=== PATIENT | female | born 1970 | race Caucasian/White ===

== ENCOUNTER 2019-06-30 20:39 | Emergency (ER) | payer BC ==
--- OUTSIDE RECORDS SUMMARY | 2019-06-30 20:46 | XMS REPORT | Continuity of Care Document ---
:1970 External Reference #:[id number] Author Name Michelle Ontiveros MD Address [address] [place] [id number] Care Team Providers Name Role Phone Ida Bang DR - Rheumatology Care Team Information Quiller Runner [phone] Mayra Rios MD - Orthopaedic Care Team Information Quiller Runner Surgery Tio Bucio - Gastroenterology Care Team Information Quiller Runner Problems Active Problems Provider Date Family history of ischemic heart disease Bobbi Celeste MD Onset: 2004 History of malignant neoplasm of cervix Bobbi Celeste MD Onset: 2004 Rheumatoid arthritis Michelle Ontiveros MD Onset: 11/01/2016 Mixed hyperlipidemia Michelle Ontiveros MD Onset: 08/29/2017 Anemia Michelle Ontiveros MD Onset: 02/19/2018 Restless legs Michelle Ontiveros MD Onset: 02/19/2018 Low back pain Michelle Ontiveros MD Onset: 11/19/2018 Spinal stenosis of lumbar region Michelle Ontiveros MD Onset: 11/19/2018 Iron deficiency anemia Michelle Ontiveros MD Onset: 05/27/2019 Social History Type Date Description Comments Sex Unknown ETOH Use Occasionally consumes alcohol Tobacco Use Start: Unknown End: Unknown Patient is a former smoker quit 1993 Smoking Status Reviewed: 11/19/18 Patient is a former smoker quit 1993 Allergies, Adverse Reactions, Alerts Description No Known Drug Allergies Medications Active Medications SIG Qnty Indications Ordering Date Provider Ferrous Sulfate 1 by mouth every otc D50.9 Michelle Ontiveros, 05/27/2019 325(65Fe) day MD mg Tablets Pramipexole 1 by mouth every 90tabs G25.81 Michelle Ontiveros, 11/19/2018 Dihydrochloride at bedtime 1.5mg Tablets Celecoxib 1 by mouth every 30caps M48.061 Michelle Ontiveros, 11/19/2018 200mg Capsules day as needed pain - do not use ibuprofen or aleve with this medication. Nystatin apply to rash 30gm L30.4 Michelle Ontiveros, 04/11/2018 [id number]/GM under breast 2 MD Cream times as needed Multivitamin Gummies 2 by mouth every Unknown Adult day Chewtabs Linzess Take 1 Capsule By Unknown 72mcg Capsules Mouth In The Morning Pantoprazole Sodium Take 1 Tablet By Unknown 40mg Mouth In The Tablets DR Morning Immunizations CPT Code Status Date Vaccine Reaction Lot # [id number] Given 11/08/2012 Tdap (Adacel) Ages 7 And Above Only VIS DATE 57252 Given 01/13/2004 Immunization Td 7 Yrs Or Older U-Flu Refused 05/27/2019 Influenza (Non Billable) Unspecified [id number] Refused 05/27/2019 Shingrix (Shingles) Zoster Vaccine HZV, Recombinant , Subunit, Adj 36059 Refused 05/27/2019 Influenza Virus Vaccine,Quadrivalent,Split,Preserv Free, 0.5mL,Im Q2039 Refused 07/02/2018 Flu Vaccine NOS Q2039 Refused 02/19/2018 Flu Vaccine NOS Vital Signs Date Vital Result Comment 05/27/2019 2:42pm Weight 161.00 lb Heart Rate 79 /min BP Systolic 134 mmHg BP Diastolic 76 mmHg Respiratory Rate 18 /min Height 65.25 inches 5'5.25" O2 % BldC Oximetry 98 % Ra BMI (Body Mass Index) 26.6 kg/m2 11/19/2018 2:42pm Weight 167.00 lb Heart Rate 68 /min BP Systolic 124 mmHg BP Diastolic 72 mmHg Respiratory Rate 16 /min Height 65.25 inches 5'5.25" O2 % BldC Oximetry 98 % Ra BMI (Body Mass Index) 27.6 kg/m2 Results Test Date Facility Test Result H/L Range Note Laboratory test finding 05/22/2019 [facility] 22 mm/hr High 0-20 1 Lipid 05/22/2019 [facility] Cholesterol 207 mg/dL High 50-199 Triglycerides 122 mg/dL 30-200 HDL 47 mg/dL 35-85 2 Chol/ HDL Ratio 4.4 ratio 3.7-5.6 VLDL 24 mg/dL 2-29 LDL (Calc) 136 mg/dL High 20-99 3 CBC with Auto Diff-[facility]cmg 05/22/2019 [facility] WBC 8.0 K/uL 4.1-11.0 RBC 4.11 M/uL 4.00-5.40 Hemoglobin 9.6 gm/dL Low 12.0-16.0 Hematocrit 30.4 % Low 36.0-47.0 MCV 73.9 fL Low 80.0-97.0 MCH 23.3 pg Low 27.0-32.0 MCHC 31.6 g/dL Low 32.0-36.0 RDW 18.3 % High 11.5-14.5 PLT Count 329 K/ul 140-400 MPV 8.6 FL 7.1-10.7 Neutrophil 67.0 % 35.0-75.0 Lymphocyte 25.2 % 16.0-52.0 Monocyte 5.2 % 2.0-10.0 Eosinophil 1.8 % 0.0-5.0 Basophil 0.8 % 0.0-4.0 Abs Neutrophils 5.4 K/uL 2.1-8.0 Abs Lymphocytes 2.0 K/uL 0.8-5.5 Abs Monocytes 0.4 K/uL 0.1-1.0 Abs Eosinophils 0.1 K/uL 0.0-0.5 Abs Basophils 0.1 K/uL 0.0-0.3 Laboratory test finding 05/22/2019 [facility] TSH 1.66 uIU/mL 0.35-4.94 Comprehensive Met Panel[facility] 05/22/2019 [facility] Sodium 140 mmol/L 135- 146 4 Potassium 3.8 mmol/L 3.5-5.2 Chloride# 103 mmol/L 97-110 5 Carbon Dioxide 29 mmol/L 24-34 Calcium 9.0 mg/dL 8.5-10.5 6 Glucose 91 mg/dL 70-105 BUN 8 mg/dL 6-26 Creatinine 0.7 mg/dL 0.5-1.4 Total Protein 6.6 g/dL 6.0-8.0 Albumin 4.1 g/dL 3.6-4.9 Globulin 2.5 g/dL 2.0-3.5 A/G Ratio 1.6 Ratio 1.0-2.2 Total Bilirubin 0.4 mg/dL 0.1-1.3 Alkaline Phosphatase 78 U/L 24-140 Alt 9 U/L 3-42 Ast 11 U/L 8-42 Anion Gap 8 mmol/L 5-15 7 Female Egfr 102 >60 8 Male Egfr 112 >60 9 1 prior to office visit in 6 mos 2 Per NCEP ATP III Guidelines: Results lower than 40 mg/dL are suggestive of increased risk for coronary artery disease. Results > or = to 60 mg/dL are considered a negative risk factor. 3 Per NCEP ATP III Guidelines: Normal Population <130 Patients with medical conditions: CHD/DM Optimal: <100 Borderline high: 130-159 High: 160-189 Very high: >189 4 Updated reference range on new analyzer 5 Updated reference range on new analyzer 6 Updated reference range 12-25-2018 7 Updated Reference Range 8 Concerning GFR Guidelines for Americans: Normal function or mild renal disease, if clinically at risk: >/= 60 mL/min Moderately decreased: 30-59 Severely decreased: 15-29 Renal failure: <15 There is reduced accuracy above 60ml/min/1.73 m squared, but the numeric value may be clinically useful in the near 60 range 9 Concerning GFR Guidelines: Normal function or mild renal disease, if clinically at risk: >/= 60 mL/min Moderately decreased: 30-59 Severely decreased: 15-29 Renal failure: <15 There is reduced accuracy above 60ml/min/1.73 m squared, but the numeric value may be clinically useful in the near 60 range Glomerular Filtration Rate (GFR) is estimated based on the CKD-EPI equation, which assumes a steady state for creatinine as recommended by the National Kidney Disease Education Program in conjunction with the National Institutes of Health and the National Kidney Foundation. Clinical conditions in which it may be necessary to measure GFR by using clearance methods include extremes of age and body size, severe malnutrition or obesity, diseases of skeletal muscle, paraplegia or quadriplegia, vegetarian diet, rapidly changing kidney function, and calculation of the dose of potentially toxic drugs that are excreted by the kidneys. Procedures Date Code Description Status 05/09/2019 [id number] Colonoscopy Completed 05/06/2019 [id number] Mammogram Completed 05/02/2018 [id number] Mammogram Completed 04/18/2018 [id number] Mammogram Completed 06/07/2015 [id number] Mammogram Completed Medical Devices Description No Information Available Encounters Description No Information Available Assessments Date Code Description Provider 05/27/2019 M06.9 Rheumatoid arthritis, unspecified Michelle Ontiveros MD 05/27/2019 E78.2 Mixed hyperlipidemia Michelle Ontiveros MD 05/27/2019 D64.9 Anemia, unspecified Michelle Ontiveros MD 05/27/2019 G25.81 Restless legs syndrome Michelle Ontiveros MD 05/27/2019 M54.5 Low back pain Michelle Ontiveros MD 05/27/2019 M48.061 Spinal stenosis, lumbar region without Michelle Ontiveros MD neurogenic claudicati 05/27/2019 M26.601 RIGHT temporomandibular joint disorder, Michelle Ontiveros MD unspecified 05/27/2019 M79.672 Pain in LEFT foot Michelle Ontiveros MD 05/27/2019 D50.9 Iron deficiency anemia, unspecified Michelle Ontiveros MD 05/27/2019 Z68.26 Body mass index (BMI) 26.0-26.9, adult Michelle Ontiveros MD 05/22/2019 M06.9 Rheumatoid arthritis, unspecified Michelle Ontiveros MD 05/22/2019 M06.9 Rheumatoid arthritis, unspecified Schedule, Laboratory 05/22/2019 E78.2 Mixed hyperlipidemia Michelle Ontiveros MD 05/22/2019 E78.2 Mixed hyperlipidemia Schedule, Laboratory 05/22/2019 D64.9 Anemia, unspecified Michelle Ontiveros MD 05/22/2019 D64.9 Anemia, unspecified Schedule, Laboratory 05/22/2019 G25.81 Restless legs syndrome Michelle Ontiveros MD 05/22/2019 G25.81 Restless legs syndrome Schedule, Laboratory 05/22/2019 Z01.419 Encounter for gynecological examination Michelle Ontiveros MD (general) (routine) without abnormal findings 05/22/2019 Z01.419 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) (routine) w/o Schedule, Laboratory abn findings 05/22/2019 M06.9 Rheumatoid arthritis, unspecified [facility] 05/22/2019 E78.2 Mixed hyperlipidemia [facility] 05/22/2019 D64.9 Anemia, unspecified [facility] 05/22/2019 G25.81 Restless legs syndrome [facility] 05/22/2019 Z01.419 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 Kay for this. We will check labs.Follow up:After 11/19 no Pap smear - check labs prior.E78.2 Mixed hyperlipidemiaComments:Cholesterol is improved. Diet controlled. She is not taking any medication for this. total cholesterol 207, triglycerides 122, HDL is 47, and LDL 136. Liver enzymes are normal.D64.9 Anemia, unspecifiedNew Labs: Vitamin B12, Scheduled: 11/18/19Comments:She has microcytic anemia. She was recommended to take [id number] ferrous Sulfate 325 mg 1 tablet daily. We will repeat her labs.G25.81 Restless legs syndromeComments:She has no improvement with the use of pramipexole. She developed change in her symptoms where she is now has pain this might be related to spinal stenosis.M54.5 Low back painComments:We will refer to military communications specialist. She will call with the name for referral.Referral:No Doctor IbgncqbyT93.061 Spinal stenosis, lumbar region without neurogenic claudicatiComments:She was given Celecoxib 200 mg 1 tablet every day as needed for pain. We will refer to military communications specialist. She will call with the name for referral.Referral:No Doctor LdpidcekE64.601 RIGHT temporomandibular joint disorder, unspecifiedComments:She was advised to recommended to eat soft diet. Ice or heat on it.M79.672 Pain in LEFT footComments:Suspect foot pain is related to spinal stenosis. refer to spine uwipolxttjH35.9 Iron deficiency anemia, unspecifiedNew Medication:Ferrous Sulfate 325(65 Fe) mg - 1 by mouth every dayNew Labs:CBC with Auto Diff-[facility], Scheduled: 11/18/19Iron Panel, Scheduled: 11/18/19Comments:new problem - start iron rkewmsuonkY81.26 Body mass index (BMI) 26.0-26.9, adultComments:Your ideal BMI is between 18.5 and 25 - you are close to this range. Continue to work on healthy lifestyle with healthy diet and regular exercise. Functional Status Description No Information Available Mental Status Description No Information Available Referrals Refer to Reason for Referral Status Appt Date refer to military communications specialist - she will call with name of Created for referral
--- OUTSIDE RECORDS SUMMARY | 2019-06-30 20:46 | XMS REPORT | Continuity of Care Document ---
:1970 External Reference #:[id number] Author Name Michelle Ontiveros MD Address [address] [place] [id number] Care Team Providers Name Role Phone Ida Bang DR - Rheumatology Care Team Information Substitute Crossing Guard Mayra Rios MD - Orthopaedic Care Team Information Substitute Crossing Guard Surgery Tio Bucio - Gastroenterology Care Team Information Substitute Crossing Guard [phone] Problems Active Problems Provider Date Family history of ischemic heart disease Bobbi Celeste MD Onset: 2004 History of malignant neoplasm of cervix Bobbi Celeste MD Onset: 2004 Rheumatoid arthritis Michelle Ontiveros MD Onset: 11/01/2016 Mixed hyperlipidemia Michelle nOtiveros MD Onset: 08/29/2017 Anemia Michelle Ontiveros MD [...] former smoker quit 1993 Smoking Status Reviewed: 06/19/19 Patient is a former smoker quit 1993 Allergies, Adverse Reactions, Alerts Description No Known Drug Allergies Medications Active Medications SIG Qnty Indications Ordering Date Provider Prednisone 6 pills by mouth 21tabs M06.9 Michelle Ontiveros, 06/19/2019 10mg Tablets x 1 dose today, MD then decrease dose by 1 pill daily until gone. Ferrous Sulfate 1 by mouth every otc D50.9 [place] Michelle, 05/27/2019 325(65Fe) day MD mg Tablets Pramipexole 1 by mouth every 90tabs G25.81 [place] Michelle, 11/19/2018 Dihydrochloride at bedtime MD 1.5mg Tablets Celecoxib 1 by mouth every 30caps M48.061 Michelle Ontiveros, 11/19/2018 200mg Capsules day as needed MD pain - do not use ibuprofen or aleve with this medication. Nystatin apply to rash 30gm L30.4 Michelle Ontiveros, 04/11/2018 888482Ngfb/GM under breast 2 MD Cream times as needed Multivitamin Gummies 2 by mouth every Unknown Adult day Chewtabs Linzess Take 1 Capsule By Unknown 72mcg Capsules Mouth In The Morning Pantoprazole Sodium Take 1 Tablet By Unknown 40mg Mouth In The Tablets DR Morning Immunizations CPT Code Status Date Vaccine Reaction Lot # [id number] Given 11/08/2012 Tdap (Adacel) Ages 7 And Above Only VIS DATE 70503 Given 01/13/2004 Immunization Td 7 Yrs Or Older U-Flu Refused 05/27/2019 Influenza (Non Billable) Unspecified 21355 Refused 05/27/2019 Shingrix (Shingles) Zoster Vaccine HZV, Recombinant , Subunit, Adj 40329 Refused 05/27/2019 Influenza Virus Vaccine,Quadrivalent,Split,Preserv Free, 0.5mL,Im Q2039 Refused 07/02/2018 Flu Vaccine NOS Q2039 Refused 02/19/2018 Flu Vaccine NOS Vital Signs Date Vital Result Comment 06/19/2019 3:24pm Weight 160.00 lb Heart Rate 74 /min BP Systolic 126 mmHg BP Diastolic 78 mmHg Respiratory Rate 18 /min Height 65.25 inches 5'5.25" O2 % BldC Oximetry 99 % Ra BMI (Body Mass Index) 26.4 kg/m2 05/27/2019 2:42pm Weight 161.00 lb Heart Rate 79 /min BP Systolic 134 mmHg BP Diastolic 76 mmHg Respiratory Rate 18 /min Height 65.25 inches 5'5.25" O2 % BldC Oximetry 98 % Ra BMI (Body Mass Index) 26.6 kg/m2 Results Test Date Facility Test Result [...] kidneys. Procedures Date Code Description Status 05/09/2019 [id number] Colonoscopy Completed 05/06/2019 [id number] Mammogram Completed 05/02/2018 [id number] Mammogram Completed 04/18/2018 [id number] Mammogram Completed 06/07/2015 [id number] Mammogram Completed Medical Devices Description No Information Available Encounters Type Date Location Provider Dx Diagnosis Office Visit 05/27/2019 [facility] Michelle Ontiveros MD M06.9 Rheumatoid arthritis, 2:45p unspecified E78.2 Mixed hyperlipidemia D64.9 Anemia, unspecified G25.81 Restless legs syndrome M54.5 Low back pain M48.061 Spinal stenosis, lumbar region without neurogenic aneudy M26.601 RIGHT temporomandibular joint disorder, unspecified M79.672 Pain in LEFT foot D50.9 Iron deficiency anemia, unspecified Z68.26 Body mass index (BMI) 26.0-26.9, adult Assessments Date Code Description Provider 06/19/2019 M79.641 Pain in RIGHT hand Michelle Ontiveros MD 06/19/2019 M06.9 Rheumatoid arthritis, unspecified Michelle Ontiveros MD 06/19/2019 Z68.26 Body mass index (BMI) 26.0-26.9, adult Michelle Ontiveros MD 05/27/2019 M06.9 Rheumatoid arthritis, unspecified Michelle Ontiveros [...] without abnormal findings 05/22/2019 Z01.419 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) (routine) w/o Schedule, Laboratory abn findings 05/22/2019 M06.9 Rheumatoid arthritis, unspecified [facility] 05/22/2019 E78.2 Mixed hyperlipidemia [facility] 05/22/2019 D64.9 Anemia, unspecified [facility] 05/22/2019 G25.81 Restless legs syndrome [facility] 05/22/2019 Z01.419 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) (routine) w/o [facility] abn findings Plan of Treatment Future Appointment(s):11/18/2019 7:40 am - Schedule, Laboratory at [facility]2019 4:15 pm - Michelle Ontiveros MD at [facility]06/19/2019 - Michelle Ontiveros, MDM79.641 Pain in RIGHT handNew Labs:CBC with Auto Diff-[facility], Ordered: 06/19/19[facility], Ordered: 06/19/19CRP (C-Reactive), Ordered: 06/19/19Comprehensive Met Panel[facility] , Ordered: 06/19/19Comments:We will order blood work today. suspect flare of rheumatoid arthritis but will check bloodwork to evaluate for infection vs inflammation - will treat with prednisone taper if the white blood count is not significantly elevated.Follow up:Labs today here or at [facility] Please call Dr. Kay and see if she can be soon, suspect rheumatoid arthritis flare.M06.9 Rheumatoid arthritis, unspecifiedNew Medication:Prednisone 10 mg - 6 pills by mouth x 1 dose today, then decrease dose by 1 pill daily until gone.Comments:We will prescribe the patient on prednisone taper. She will wait for our call before starting this medication.Z68.26 Body mass index (BMI) 26.0-26.9, adultComments:Your ideal bmi is between 18.5 and 25 - you are close to this range. Continue to work on healthy lifestyle with healthy diet and regular exercise. Functional Status Description No Information Available Mental Status Description No Information Available Referrals Refer to Reason for Referral Status Appt Date refer to clinical application specialist - she will call with name of Created for referral
[2019-06-30 21:17] VITALS: BP 117/75
--- NOTE | 2019-06-30 21:32 | UC ---
Eye Complaint HPI - HPI Summary HPI Summary: 49-year-old female presents with 2 day history of progressively worsening eye redness. States today she started noticing some tenderness of the eyelid with palpation without swelling. States she thinks she may have scratched the eye with her makeup brush prior to the onset of symptoms. Denies fever, chills, URI symptoms, visual disturbances, eye pain, eye itchiness, photophobia, or drainage. - History of Current Complaint Chief Complaint: UCEye Stated Complaint: RT EYE COMPLAINT Time Seen by Provider: 06/30/19 21:24 Hx Obtained From: Patient Hx Last Menstrual Period: 06/28/19 Pain Intensity: 6 - Allergies/Home Medications Allergies/Adverse Reactions: Allergies Allergy/AdvReac Type Severity Reaction Status Date / Time No Known Allergies Allergy Verified 06/30/19 21:01 Home Medications: Home Medications Hydroxychloroquine TAB* [Plaquenil TAB*] 200 mg PO DAILY 06/30/19 [History Confirmed 06/30/19] Multivitamin [Multivitamins] 1 cap PO DAILY 06/30/19 [History Confirmed 06/30/19 ] Pantoprazole TAB * [Protonix TAB*] 40 mg PO DAILY 06/30/19 [History Confirmed ] Pramipexole Di-HCl [Pramipexole Dihydrochlori] 1.5 mg PO BEDTIME 06/30/19 [ History Confirmed 06/30/19] celeCOXIB CAP* [CeleBREX CAP*] 200 mg PO DAILY PRN 06/30/19 [History Confirmed 06/30/19] PMH/Surg Hx/FS Hx/Imm Hx - Additional Past Medical History Additional PMH: RA, RLS Previously Healthy: Yes GI/ History: Gastroesophageal Reflux - Surgical History Surgical History: None - Family History Known Family History: Positive: Non-Contributory - Social History Occupation: Employed Full-time Lives: With Family Alcohol Use: Rare Substance Use Type: None Smoking Status (MU): Former Smoker When Did the Patient Quit Smoking/Using Tobacco: 1983 Review of Systems All Other Systems Reviewed And Are Negative: Yes Constitutional: Negative: Fever, Chills Eyes: Positive: Eye Redness. Negative: Blurred Vision, Diplopia, Drainage, Photophobia Respiratory: Positive: Negative Cardiovascular: Positive: Negative Gastrointestinal: Positive: Negative Genitourinary: Positive: Negative Musculoskeletal: Positive: Negative Neurological: Positive: Negative Is Patient Immunocompromised?: No Physical Exam - Summary Physical Exam Summary: GENERAL APPEARANCE: Well developed, well nourished, alert and cooperative, and appears to be in no acute distress. EYES: Left conjunctiva clear. No drainage. Right conjunctival erythema with mild conjunctival edema laterally. No drainage. PERRL, EOM intact. Vision is grossly intact. Tetracaine and fluorosceine were instilled into the right eye and the eye was examined under magnification with a Wood's lamp. No abrasion, FB , penetrating injury, or strain uptake noted. CARDIAC: Normal S1 and S2. No S3, S4 or murmurs. Rhythm is regular. There is no peripheral edema, cyanosis or pallor. Extremities are warm and well perfused. Capillary refill is less than 2 seconds. Peripheral pulses intact. LUNGS: Clear to auscultation without rales, rhonchi, wheezing or diminished breath sounds. ABDOMEN: Positive bowel sounds. Soft, nondistended, nontender. No guarding or rebound. No masses or hepatosplenomegally. MUSKULOSKELETAL: ROM intact to all extremities. No joint erythema or tenderness. Normal muscular development. Normal gait. SKIN: Skin normal color, texture and turgor with no lesions or eruptions. Triage Information Reviewed: Yes Vital Signs: Initial Vital Signs Temp 98.2 F 06/30/19 21:07 Pulse 86 06/30/19 21:07 Resp 16 06/30/19 21:07 BP 117/75 06/30/19 21:07 Pulse Ox 99 06/30/19 21:07 Vital Signs Reviewed: Yes Eye Complaint Course/Dx - Course Course Of Treatment: 49-year-old female presents with 2 day history of progressively worsening eye redness. States today she started noticing some tenderness of the eyelid with palpation without swelling. States she thinks she may have scratched the eye with her makeup brush prior to the onset of symptoms. Denies fever, chills, URI symptoms, visual disturbances, eye pain, eye itchiness, photophobia, or drainage. Afebrile. Vital signs stable. Patient's exam was notable for right conjunctival erythema with mild conjunctival edema laterally. No drainage. PERRL , EOM intact. Vision is grossly intact. Tetracaine and fluorosceine were instilled into the right eye and the eye was examined under magnification with a Wood's lamp. No abrasion, FB, penetrating injury, or strain uptake noted. Discussed with the patient that her symptoms do appear to be a conjunctivitis although I cannot be certain that this is bacterial in origin. The patient is reporting that she is about to leave to go out of town and therefore I medical head and treat this as a bacterial conjunctivitis. We'll start her on Polytrim ophthalmic 1 drop into the right eye 4 times a day for 7 days. Anticipatory guidance and warning symptoms were reviewed with the patient. Verbalizes understanding and agrees with plan of care. - Differential Dx/Diagnosis Differential Diagnosis/HQI/PQRI: Conjunctivitis, Corneal Abrasion, Periorbital Cellulitis, Orbital Cellulitis, Other - hordeolum Provider Diagnosis: Conjunctivitis, right eye Discharge ED - Sign-Out/Discharge Documenting (check all that apply): Patient Departure All imaging exams completed and their final reports reviewed: No Studies - Discharge Plan Condition: Stable Disposition: HOME Patient Education Materials: Conjunctivitis (ED) Referrals: Michelle Ontiveros MD [Primary Care Provider] - 2 Days (If no imptorvment in symptoms.) Additional Instructions: Start Polytrim ophthalmic drops. Instill 1 drop into the right eye 4 times a day for 7 days. Do not wear your contacts until you have completed the treatment. Throw out the old pair and use a new pair once you have completed you treatment. To avoid reinfection or spreading infection: * Use washcloths and towels once then launder. * Do not share washcloths or towels with others. * Change your pillow case each morning until you have finished treatment. * You should throw out any eye makeup, especially mascara, and use a new one once you have finished treatment. Follow up here or with your primary care provider in 3 days if no improvement. Seek immediate medical attention in the emergency room if you develop fever greater than 100.5 F, have pain or swelling of the eye, visual disturbances, loss of vision, or any worsening of symptoms. - Billing Disposition and Condition Condition: STABLE Disposition: Home
[2019-06-30] MEDS ORDERED: Fluorescein Sodium TOPICAL* 1 MG TEST STRIP OPHTHALMIC ONE (21:36)
[2019-06-30] MEDS ORDERED: Tetracaine 0.5% OPTH.SOL 4 ML* 1 DROP BTL RIGHT EYE ONE (21:36)
[2019-06-30] MEDS ORDERED: Polymyx/Trimethoprim OPTH* 10 ML BTL RIGHT EYE ONE (21:45)
== END 2019-06-30 21:59 | disposition home or self-care (01) ==
LOC: UCCORT 20:39
DX: H10.9 Unspecified conjunctivitis (principal); K21.9 Gastro-esophageal reflux disease without esophagitis; Z79.899 Other long term (current) drug therapy; Z87.891 Personal history of nicotine dependence
CPT/HCPCS: 99202; A9270-GY; G0463